=== PATIENT | male | born 1960 | race Caucasian/White ===

== ENCOUNTER 2024-11-29 14:43 | Inpatient (IN) | payer MEDICARE, MEDICAID ==
[~2024-11-29] VITALS: Ht 167.6 cm; Wt 141.5 kg
[~2024-11-29 14:43] MED LIST: ATEN100T PO; DIVA-75 PO; DOCU-138 PO; DONE10TA43 PO; INSU100I28 SQ; IPRA3AMP9 NEB; LOSA100T33 PO; MEMA5TAB16 PO; METF-416 PO; NIFE-32 PO; OLAN5TAB74 PO; QUET50TA23 PO; ROSU40TA PO
[2024-11-29 15:56] LABS: HEMATOCRIT. 37.7 % (42.0-52.0); HEMOGLOBIN. 12.4 g/dL (14.0-18.0); MEAN CORPUSCULAR HEMOGLOBIN 29.6 pg (28.0-32.0); MEAN CORPUSCULAR HGB CONC 32.8 g/dL (31.0-37.0); MEAN PLATELET VOLUME 10.4 fl (7.4-10.4); PLATELET 246 x1000/uL (130-400); RED BLOOD CELL COUNT 4.19 mill/uL (4.7-6.1); RED CELL DISTRIBUTION WIDTH 14.1 % (11.6-14.6); WHITE BLOOD COUNT 8.5 x1000/uL (4.5-11.0)
[2024-11-29 15:59] LABS: DIFFERENTIAL COMMENT 1
[2024-11-29 16:03] LABS: CHLORIDE 96 mEq/L (98-107); SODIUM 133 mEq/L (136-145)
[2024-11-29 16:04] LABS: CALCIUM 8.5 mg/dL (8.7-10.4); CARBON DIOXIDE 20 mEq/L (21-32)
[2024-11-29 16:09] LABS: GLUCOSE 181 mg/dL (70-105); UREA NITROGEN BLOOD 75 mg/dL (9-23)
[2024-11-29 16:11] LABS: TROPONIN I HIGH SENSITIVITY 25 ng/L (3.0-53)
[2024-11-29 16:13] LABS: CREATININE 4.3 mg/dL (0.6-1.3)
[2024-11-29 16:32] LABS: PLATELET ESTIMATE NORMAL
[2024-11-29] MEDS ORDERED: CLONIDINE 0.1MG TABLET PO PRN (17:15)
[2024-11-29] MEDS ORDERED: ONDANSETRON HCL 4MG/2ML INJ IV PRN (17:15)
[2024-11-29] MEDS: ONDANSETRON HCL 4MG/2ML INJ IV ONE (18:43)
[2024-11-29] MEDS: SODIUM CHLORIDE 0.9% 1,000 ML IV ONE (18:43)
[2024-11-29] MEDS: MORPHINE SULFATE 4 MG/ML INJ (FOR IV/IM USE) IV ONE (18:43)
[2024-11-29] MEDS: DEXT 5%/0.45% NACL 1000ML 1,000 ML IV SCH (19:13)
[2024-11-29] MEDS: CEFTRIAXONE 1GM/50ML 50 ML IV SCH (21:15)
[2024-11-29] MEDS: ACETAMINOPHEN 325MG TABLET PO PRN (22:40)
[2024-11-30] VITALS (48 sets, daily range): BP systolic 77–148; BP diastolic 35–118; PULSE 68–87; RESP 17–38; TEMP 36.4–38.3; O2SAT 90–100
[2024-11-30] MEDS ORDERED: ETOMIDATE 2MG/ML 10ML VIAL IV ONE ×2 (06:53→15:35)
[2024-11-30] MEDS: PIPERACILLIN/TAZO 3.375G/50ML 50 ML IV SCH (09:00)
[2024-11-30] MEDS ORDERED: NOREPINEPHRINE 8 MG in DEXT 5% WATER 242 ML IV PRN (09:30)
[2024-11-30] MEDS ORDERED: NOREPINEPHRINE 8MG/250ML PMX 250 ML IV ONE (09:43)
[2024-11-30] MEDS: MIDAZOLAM HCL 2 MG/2 ML VIAL IV ONE (09:45)
[2024-11-30] MEDS ORDERED: NOREPINEPHRINE 8MG/250ML PMX 250 ML IV PRN (09:45)
[2024-11-30] MEDS: NOREPINEPHRINE 8MG/250ML PMX 250 ML IV PRN (10:43)
[2024-11-30] MEDS: SODIUM CHLORIDE 0.9% 500 ML IV ONE (11:00)
[2024-11-30] MEDS: PROPOFOL 10MG/ML 100ML 100 ML IV PRN (11:16)
[2024-11-30 11:22] LABS: BG BASE EXCESS -11.5 mmol/L (-2.0-3.0); BG CARBOXYHEMOGLOBIN 0.4 % (0.5-1.5); BG DEOXYHEMOGLOBIN 0.7 % (0.0-5.0); BG FRACTION INSPIRED OXYGEN 100; BG HCO3 ACT 15.9 mmol/L (21.0-28.0); BG METHEMOGLOBIN 0.3 % (0.5-1.5); BG OXYGEN SATURATION 99.3 % (94.0-98.0); BG OXYHEMOGLOBIN 98.6 % (94.0-98.0); BG PCO2 41.1 mmHg (35.0-48.0); BG PH 7.205 (7.350-7.450); BG PO2 179.4 mmHg (83.0-108.0); BG SAMPLE SITE RIGHT RADIAL; BG TOTAL HEMOGLOBIN 13.2 g/dL (13.5-17.5); BG VENT MODE VENT - AC
[2024-11-30] MEDS: VANCOMYCIN 1G PREMIX 200 ML IV SCH (13:00)
[2024-11-30] MEDS: SODIUM BICARBONATE 100 MEQ in SODIUM CHLORIDE 0.45% 900 ML IV SCH (13:22)
[2024-11-30] MEDS ORDERED: FENTANYL 2500MCG/250ML PMX 250 ML IV PRN (13:30)
[2024-11-30 13:51] LABS: HEMATOCRIT. 35.7 % (42.0-52.0); HEMOGLOBIN. 11.5 g/dL (14.0-18.0); MEAN CORPUSCULAR HEMOGLOBIN 29.2 pg (28.0-32.0); MEAN CORPUSCULAR HGB CONC 32.3 g/dL (31.0-37.0); MEAN CORPUSCULAR VOLUME 90.5 fL (80.0-94.0); MEAN PLATELET VOLUME 10.4 fl (7.4-10.4); PLATELET 279 x1000/uL (130-400); RED BLOOD CELL COUNT 3.95 mill/uL (4.7-6.1); RED CELL DISTRIBUTION WIDTH 14.3 % (11.6-14.6); WHITE BLOOD COUNT 9.3 x1000/uL (4.5-11.0)
[2024-11-30 13:56] LABS: DIFFERENTIAL COMMENT 1
[2024-11-30 14:02] LABS: CHLORIDE 97 mEq/L (98-107); POTASSIUM 3.7 mEq/L (3.5-5.1); SODIUM 134 mEq/L (136-145)
[2024-11-30 14:03] LABS: CALCIUM 7.6 mg/dL (8.7-10.4); CARBON DIOXIDE 19 mEq/L (21-32)
[2024-11-30 14:08] LABS: GLUCOSE 158 mg/dL (70-105); TROPONIN I HIGH SENSITIVITY 39 ng/L (3.0-53); UREA NITROGEN BLOOD 87 mg/dL (9-23)
[2024-11-30 14:09] LABS: ALANINE AMINOTRANSFERASE 31 IU/L (10-49); ALBUMIN 3.5 g/dL (3.2-4.8); ASPARTATE AMINOTRANSFERASE 80 IU/L (<34)
[2024-11-30 14:10] LABS: BILIRUBIN TOTAL 0.2 mg/dL (0.1-1.0); PROTEIN TOTAL 6.4 g/dL (6.0-8.3)
[2024-11-30 14:12] LABS: THYROID STIMULATING HORMONE 0.93 uIU/mL (0.55-4.78)
[2024-11-30 15:21] LABS: LACTIC ACID 5.2 mmol/L (0.4-2.0)
[2024-11-30] MEDS ORDERED: DEXAMETHASONE 4MG/ML 1ML VIAL ONE (15:35)
[2024-11-30] MEDS ORDERED: ROCURONIUM BROMIDE 10MG/ML VIAL 5ML IV ONE ×3 (15:35→19:46)
[2024-11-30] MEDS ORDERED: PROPOFOL 200MG/20ML VIAL IV ONE (15:35)
[2024-11-30] MEDS ORDERED: FENTANYL CITRATE/PF 50MCG/ML 2ML VIAL ONE (15:35)
[2024-11-30] MEDS ORDERED: ONDANSETRON HCL 4MG/2ML INJ ONE (15:35)
[2024-11-30] MEDS ORDERED: VASOPRESSIN 20 UNIT/ML 1ML ONE (15:46)
[2024-11-30 15:47] LABS: CREATININE 5.4 mg/dL (0.6-1.3)
[2024-11-30] MEDS ORDERED: ALBUMIN HUMAN 12.5G/250ML (5%) IV ONE ×2 (15:47→18:32)
[2024-11-30 16:30] LABS: BG BASE EXCESS -11.9 mmol/L (-2.0-3.0); BG CARBOXYHEMOGLOBIN 0.7 % (0.5-1.5); BG DEOXYHEMOGLOBIN 3.4 % (0.0-5.0); BG FRACTION INSPIRED OXYGEN 50; BG HCO3 ACT 15.4 mmol/L (21.0-28.0); BG METHEMOGLOBIN 0.3 % (0.5-1.5); BG OXYGEN SATURATION 96.6 % (94.0-98.0); BG OXYHEMOGLOBIN 95.6 % (94.0-98.0); BG PCO2 39.9 mmHg (35.0-48.0); BG PH 7.204 (7.350-7.450); BG PO2 94.6 mmHg (83.0-108.0); BG SAMPLE SITE LEFT RADIAL; BG TOTAL HEMOGLOBIN 13.1 g/dL (13.5-17.5); BG TOTAL RESPIRATORY RATE 33 b/min; BG VENT MODE VENT - AC
[2024-11-30 17:30] LABS: PLATELET ESTIMATE NORMAL
[2024-11-30] MEDS ORDERED: EPINEPHRINE 0.1MG/ML (1:10,000) 10ML SYR ONE (17:41)
[2024-11-30] MEDS ORDERED: SODIUM BICARBONATE 8.4% 50MEQ/50ML SYR IV ONE ×2 (19:17→19:19)
[2024-11-30 19:18] LABS: BG CARBOXYHEMOGLOBIN 0.4 % (0.5-1.5); BG DEOXYHEMOGLOBIN 5.7 % (0.0-5.0); BG FRACTION INSPIRED OXYGEN 50; BG HCO3 ACT 13.3 mmol/L (21.0-28.0); BG METHEMOGLOBIN 0.3 % (0.5-1.5); BG OXYGEN SATURATION 94.3 % (94.0-98.0); BG OXYHEMOGLOBIN 93.6 % (94.0-98.0); BG PH 7.139 (7.350-7.450); BG PO2 83.3 mmHg (83.0-108.0); BG SAMPLE SITE RIGHT RADIAL; BG TOTAL HEMOGLOBIN 12.5 g/dL (13.5-17.5)
[2024-11-30] MEDS ORDERED: CALCIUM CHLORIDE 1GM/10ML SYR IV ONE (19:32)
[2024-11-30] MEDS: OLANZAPINE 5MG TABLET ODT PO SCH (21:00)
[2024-11-30] MEDS: DIVALPROEX SODIUM 500MG DR TABLET PO SCH (21:00)
[2024-11-30 21:02] LABS: BG BASE EXCESS -8.6 mmol/L (-2.0-3.0); BG CARBOXYHEMOGLOBIN 0.3 % (0.5-1.5); BG FRACTION INSPIRED OXYGEN 100; BG METHEMOGLOBIN 0.3 % (0.5-1.5); BG OXYHEMOGLOBIN 98.4 % (94.0-98.0); BG PCO2 30.4 mmHg (35.0-48.0); BG PH 7.339 (7.350-7.450); BG PO2 132.2 mmHg (83.0-108.0); BG SAMPLE SITE ALINE; BG TOTAL HEMOGLOBIN 11.7 g/dL (13.5-17.5); BG VENT MODE VENT - AC
[2024-11-30 22:38] LABS: INR 1.3; PARTIAL THROMBOPLASTIN TIME 34.3 sec (23.4-31.0); PROTHROMBIN TIME 13.4 sec (9.6-11.0)
[2024-11-30] MEDS: VASOPRESSIN 20 UNIT in SODIUM CHLORIDE 0.9% 99 ML IV PRN (22:52)
[2024-11-30] MEDS ORDERED: LACTATED RINGERS 1,000 ML IV ONE (23:45)
[2024-11-30] MEDS: LACTATED RINGERS 1,000 ML IV ONE (23:58)
[2024-12-01] VITALS (102 sets, daily range): BP systolic 84–168; BP diastolic 57–98; PULSE 70–94; RESP 9–40; TEMP 36.4–38.8; O2SAT 89–100
[2024-12-01] MEDS: FENTANYL CITRATE 2,500 MCG in SODIUM CHLORIDE 0.9% 200 ML IV PRN (01:30)
[2024-12-01] MEDS: NOREPINEPHRINE 32 MG in DEXT 5% WATER 218 ML IV PRN (01:32)
[2024-12-01 02:11] LABS: HEMATOCRIT 36.4 % (42.0-52.0); HEMOGLOBIN 11.9 g/dL (14.0-18.0); MEAN CORPUSCULAR HEMOGLOBIN 29.3 pg (28.0-32.0); MEAN CORPUSCULAR HGB CONC 32.7 g/dL (31.0-37.0); MEAN CORPUSCULAR VOLUME 89.5 fL (80.0-94.0); PLATELET 267 x1000/uL (130-400); RED BLOOD CELL COUNT 4.07 mill/uL (4.7-6.1); RED CELL DISTRIBUTION WIDTH 14.6 % (11.6-14.6)
[2024-12-01 02:22] LABS: CHLORIDE 97 mEq/L (98-107); POTASSIUM 4.3 mEq/L (3.5-5.1); SODIUM 138 mEq/L (136-145)
[2024-12-01 02:23] LABS: CALCIUM 7.7 mg/dL (8.7-10.4); CARBON DIOXIDE 21 mEq/L (21-32)
[2024-12-01 02:28] LABS: GLUCOSE 151 mg/dL (70-105); UREA NITROGEN BLOOD 90 mg/dL (9-23)
[2024-12-01 02:35] LABS: LACTIC ACID 7.9 mmol/L (0.4-2.0)
[2024-12-01 02:35] LABS: CREATININE 5.1 mg/dL (0.6-1.3)
[2024-12-01] MEDS: VANCOMYCIN 1G PREMIX 200 ML IV SCH (02:50)
[2024-12-01 06:29] LABS: HEMATOCRIT. 34.2 % (42.0-52.0); HEMOGLOBIN. 11.6 g/dL (14.0-18.0); MEAN CORPUSCULAR HGB CONC 33.9 g/dL (31.0-37.0); MEAN CORPUSCULAR VOLUME 88.4 fL (80.0-94.0); MEAN PLATELET VOLUME 10.6 fl (7.4-10.4); PLATELET 280 x1000/uL (130-400); RED BLOOD CELL COUNT 3.87 mill/uL (4.7-6.1); WHITE BLOOD COUNT 10.4 x1000/uL (4.5-11.0)
[2024-12-01 06:42] LABS: CALCIUM 7.4 mg/dL (8.7-10.4); POTASSIUM 4.9 mEq/L (3.5-5.1)
[2024-12-01 06:59] LABS: DIFFERENTIAL COMMENT 1
[2024-12-01] MEDS ORDERED: LIDOCAINE HCL 1% 10 MG/ML 10ML VIAL ONE (07:13)
[2024-12-01 09:09] LABS: BG BASE EXCESS -9.5 mmol/L (-2.0-3.0); BG CARBOXYHEMOGLOBIN 0.9 % (0.5-1.5); BG DEOXYHEMOGLOBIN 7.4 % (0.0-5.0); BG FRACTION INSPIRED OXYGEN 50; BG HCO3 ACT 17.7 mmol/L (21.0-28.0); BG METHEMOGLOBIN 0.3 % (0.5-1.5); BG OXYGEN SATURATION 92.5 % (94.0-98.0); BG OXYHEMOGLOBIN 91.4 % (94.0-98.0); BG PCO2 43.7 mmHg (35.0-48.0); BG PH 7.225 (7.350-7.450); BG PO2 71.2 mmHg (83.0-108.0); BG SAMPLE SITE ALINE; BG TOTAL HEMOGLOBIN 12.1 g/dL (13.5-17.5); BG VENT MODE VENT - AC
[2024-12-01] MEDS: SODIUM BICARBONATE 8.4% 50MEQ/50ML SYR IV SCH (09:33)
[2024-12-01] MEDS ORDERED: SODIUM BICARBONATE 150 MEQ in DEXTROSE 5% WATER 850 ML IV SCH (10:30)
[2024-12-01] MEDS: SODIUM BICARBONATE 150 MEQ in DEXTROSE 5% WATER 850 ML IV SCH (11:11)
[2024-12-01] MEDS: LACTATED RINGERS 1,000 ML IV SCH (12:28)
[2024-12-01] MEDS: PANTOPRAZOLE SODIUM 40 MG/VIAL IV SCH (14:15)
[2024-12-01 15:22] LABS: PLATELET ESTIMATE NORMAL
[2024-12-01] MEDS: LACTATED RINGERS 1,000 ML IV NR (17:42)
[2024-12-01] MEDS ORDERED: CALCIUM GLUCONATE 1GM PREMIX 50 ML IV ONE (22:30)
[2024-12-01] MEDS: CALCIUM GLUCONATE 1GM PREMIX 50 ML IV NR (22:56)
[2024-12-02] VITALS (104 sets, daily range): BP systolic 85–188; BP diastolic 51–119; PULSE 63–134; RESP 9–29; TEMP 36.89184–39.4; O2SAT 94–100
[2024-12-02] MEDS: CALCIUM GLUCONATE 1GM PREMIX 50 ML IV NR (00:31)
[2024-12-02] MEDS ORDERED: DEXTROSE 50% WATER 50ML SYRINGE IV PRN (01:15)
[2024-12-02] MEDS: INSULIN LISPRO 100 UNITS/ML SUBCUT SCH (01:44)
[2024-12-02 06:42] LABS: CALCIUM 6.5 mg/dL (8.7-10.4); CHLORIDE 94 mEq/L (98-107); POTASSIUM 4.9 mEq/L (3.5-5.1); SODIUM 137 mEq/L (136-145)
[2024-12-02 06:43] LABS: CARBON DIOXIDE 22 mEq/L (21-32)
[2024-12-02 06:48] LABS: GLUCOSE 237 mg/dL (70-105)
[2024-12-02 06:51] LABS: PHOSPHORUS 5.6 mg/dL (2.5-4.9)
[2024-12-02 07:02] LABS: HEMATOCRIT. 31.1 % (42.0-52.0); HEMOGLOBIN. 10.5 g/dL (14.0-18.0); MEAN CORPUSCULAR HEMOGLOBIN 29.7 pg (28.0-32.0); MEAN CORPUSCULAR HGB CONC 33.8 g/dL (31.0-37.0); MEAN CORPUSCULAR VOLUME 87.8 fL (80.0-94.0); MEAN PLATELET VOLUME 10.4 fl (7.4-10.4); PLATELET 189 x1000/uL (130-400); RED BLOOD CELL COUNT 3.54 mill/uL (4.7-6.1); RED CELL DISTRIBUTION WIDTH 14.3 % (11.6-14.6); WHITE BLOOD COUNT 10.8 x1000/uL (4.5-11.0)
[2024-12-02 07:22] LABS: CREATININE 5.9 mg/dL (0.6-1.3); UREA NITROGEN BLOOD 106 mg/dL (9-23)
[2024-12-02 07:52] LABS: DIFFERENTIAL COMMENT 1
[2024-12-02 09:37] LABS: BG BASE EXCESS -2.4 mmol/L (-2.0-3.0); BG CARBOXYHEMOGLOBIN 0.4 % (0.5-1.5); BG DEOXYHEMOGLOBIN 1.7 % (0.0-5.0); BG FRACTION INSPIRED OXYGEN 45; BG HCO3 ACT 21.6 mmol/L (21.0-28.0); BG METHEMOGLOBIN 0.3 % (0.5-1.5); BG OXYGEN SATURATION 98.3 % (94.0-98.0); BG OXYHEMOGLOBIN 97.6 % (94.0-98.0); BG PCO2 34.7 mmHg (35.0-48.0); BG PH 7.412 (7.350-7.450); BG PO2 109.3 mmHg (83.0-108.0); BG SAMPLE SITE ALINE; BG TOTAL HEMOGLOBIN 11.5 g/dL (13.5-17.5); BG VENT MODE VENT - AC
[2024-12-02] MEDS ORDERED: LIDOCAINE HCL 1% 10 MG/ML 10ML VIAL ONE (10:31)
[2024-12-02 12:13] LABS: PLATELET ESTIMATE NORMAL
[2024-12-02 16:48] LABS: HEPATITIS B SURFACE ANTIGEN NEGATIVE (Negative)
[2024-12-02 17:09] LABS: HEPATITIS A AB IGM NEGATIVE (Negative); HEPATITIS B CORE AB IGM NEGATIVE (Negative)
[2024-12-02 17:10] LABS: HEPATITIS C AB NON REACTIVE (Neg) (Negative)
[2024-12-02] MEDS: MEROPENEM 1G/100ML 100 ML IV SCH (17:41)
[2024-12-03] VITALS (42 sets, daily range): BP systolic 40–155; BP diastolic 26–110; PULSE 48–131; RESP 0–40; TEMP 37.5; O2SAT 95–100
[2024-12-03 00:15] LABS: BG BASE EXCESS -8.5 mmol/L (-2.0-3.0); BG CARBOXYHEMOGLOBIN 1.2 % (0.5-1.5); BG DEOXYHEMOGLOBIN 0.1 % (0.0-5.0); BG FRACTION INSPIRED OXYGEN 100; BG HCO3 ACT 16.4 mmol/L (21.0-28.0); BG METHEMOGLOBIN 0.3 % (0.5-1.5); BG OXYGEN SATURATION 99.9 % (94.0-98.0); BG OXYHEMOGLOBIN 98.4 % (94.0-98.0); BG PCO2 32.5 mmHg (35.0-48.0); BG PH 7.322 (7.350-7.450); BG SAMPLE SITE ALINE; BG TOTAL HEMOGLOBIN 13.7 g/dL (13.5-17.5); BG VENT MODE VENT - AC
[2024-12-03] MEDS: EPINEPHRINE 10 MG in SODIUM CHLORIDE 0.9% 240 ML IV PRN (01:01)
[2024-12-03] MEDS: PHENYLEPHRINE 100 MG in DEXT 5% WATER 240 ML IV PRN (04:40)
[2024-12-03 04:57] LABS: BASOPHILS % 0.2 % (0.0-2.0); EOSINOPHILS % 0.1 % (0.0-5.0); HEMATOCRIT. 28.1 % (42.0-52.0); HEMOGLOBIN. 8.7 g/dL (14.0-18.0); LYMPHOCYTES % 7.4 % (20.0-50.0); MEAN CORPUSCULAR HEMOGLOBIN 29.3 pg (28.0-32.0); MEAN CORPUSCULAR HGB CONC 31.1 g/dL (31.0-37.0); MEAN CORPUSCULAR VOLUME 94.1 fL (80.0-94.0); MONOCYTES % 13.6 % (2.0-8.0); NEUTROPHILS % 78.7 % (40.0-76.0); PLATELET 185 x1000/uL (130-400); RED BLOOD CELL COUNT 2.98 mill/uL (4.7-6.1); WHITE BLOOD COUNT 18.9 x1000/uL (4.5-11.0)
[2024-12-03 05:07] LABS: CHLORIDE 96 mEq/L (98-107); SODIUM 140 mEq/L (136-145)
[2024-12-03 05:08] LABS: CARBON DIOXIDE 12 mEq/L (21-32)
[2024-12-03 05:09] LABS: CALCIUM 6.4 mg/dL (8.7-10.4)
[2024-12-03 05:13] LABS: GLUCOSE 242 mg/dL (70-105)
[2024-12-03 05:14] LABS: UREA NITROGEN BLOOD 85 mg/dL (9-23)
[2024-12-03 05:15] LABS: ALANINE AMINOTRANSFERASE 88 IU/L (10-49); ALBUMIN 2.5 g/dL (3.2-4.8); ASPARTATE AMINOTRANSFERASE 201 IU/L (<34)
[2024-12-03 05:16] LABS: BILIRUBIN TOTAL 0.3 mg/dL (0.1-1.0); PROTEIN TOTAL 4.8 g/dL (6.0-8.3)
[2024-12-03 05:36] LABS: CREATININE 5.5 mg/dL (0.6-1.3); POTASSIUM 6.2 mEq/L (3.5-5.1)
[2024-12-03] MEDS: EPINEPHRINE 20 MG in SODIUM CHLORIDE 0.9% 480 ML IV PRN (05:47)
[2024-12-03] MEDS: DEXTROSE 50% WATER 50ML SYRINGE IV NR (07:41)
[2024-12-03] MEDS: INSULIN REGULAR (HUMULIN R) 1000UNITS/10ML VIAL IV NR (07:41)
[2024-12-03] MEDS: DOPAMINE 800MG PREMIX (DOUBLE) 250 ML IV PRN (07:50)
[2024-12-03] MEDS: HYDROCORTISONE SOD SUCCINATE 100 MG/2 ML VIAL IV SCH (08:19)
[2024-12-03] MEDS ORDERED: MEROPENEM 1G/100ML 100 ML IV SCH (09:00)
== END 2024-12-03 08:37 | DRG 853 ==
LOC: ER 14:43 → EDBEDREQ 16:49 → 5WST 19:21 → EDBEDREQ 19:32 → CVICU 11-30 10:36
PROVIDERS: ADMIT Internal Medicine Nephrology; ATTEND Internal Medicine Nephrology
PROC: 0DTN0ZZ Resection of Sigmoid Colon, Open Approach (ICD-10-PCS; principal; 2024-11-30)
PROC: 0D1L0Z4 Bypass Transverse Colon to Cutaneous, Open Approach (ICD-10-PCS; 2024-11-30)
PROC: 0DBL0ZZ Excision of Transverse Colon, Open Approach (ICD-10-PCS; 2024-11-30)
PROC: 30233K1 Transfusion of Nonautologous Frozen Plasma into Peripheral Vein, Percutaneous Approach (ICD-10-PCS; 2024-11-30)
PROC: 5A1945Z Respiratory Ventilation, 24-96 Consecutive Hours (ICD-10-PCS; 2024-11-30)
PROC: 0BH17EZ Insertion of Endotracheal Airway into Trachea, Via Natural or Artificial Opening (ICD-10-PCS; 2024-11-30)
PROC: GZ56ZZZ Individual Psychotherapy, Supportive (ICD-10-PCS; 2024-11-30)
PROC: 02HV33Z Insertion of Infusion Device into Superior Vena Cava, Percutaneous Approach (ICD-10-PCS; 2024-12-01)
PROC: B548ZZA Ultrasonography of Superior Vena Cava, Guidance (ICD-10-PCS; 2024-12-01)
PROC: 5A12012 Performance of Cardiac Output, Single, Manual (ICD-10-PCS; 2024-12-02)
PROC: 02HV33Z Insertion of Infusion Device into Superior Vena Cava, Percutaneous Approach (ICD-10-PCS; 2024-12-02)
PROC: B548ZZA Ultrasonography of Superior Vena Cava, Guidance (ICD-10-PCS; 2024-12-02)
PROC: 5A1D70Z Performance of Urinary Filtration, Intermittent, Less than 6 Hours Per Day (ICD-10-PCS; 2024-12-02)
PROC: 5A12012 Performance of Cardiac Output, Single, Manual (ICD-10-PCS; 2024-12-03)
DX: A41.9 Sepsis, unspecified organism (principal); G93.41 Metabolic encephalopathy; J96.01 Acute respiratory failure with hypoxia; R65.21 Severe sepsis with septic shock; G93.6 Cerebral edema; N17.0 Acute kidney failure with tubular necrosis; E87.1 Hypo-osmolality and hyponatremia; E87.20 Acidosis, unspecified; F03.93 Unspecified dementia, unspecified severity, with mood disturbance; E66.2 Morbid (severe) obesity with alveolar hypoventilation; Z68.42 Body mass index [BMI] 45.0-49.9, adult; K43.6 Other and unspecified ventral hernia with obstruction, without gangrene; Z66 Do not resuscitate; I11.9 Hypertensive heart disease without heart failure; E11.65 Type 2 diabetes mellitus with hyperglycemia; D64.9 Anemia, unspecified; F31.9 Bipolar disorder, unspecified; Z78.1 Physical restraint status; E83.51 Hypocalcemia; E78.00 Pure hypercholesterolemia, unspecified; G47.00 Insomnia, unspecified; K22.9 Disease of esophagus, unspecified; K66.0 Peritoneal adhesions (postprocedural) (postinfection); Z91.199 Patient's noncompliance with other medical treatment and regimen due to unspecified reason; Z79.4 Long term (current) use of insulin; Z79.84 Long term (current) use of oral hypoglycemic drugs; Z79.899 Other long term (current) drug therapy; Z86.73 Personal history of transient ischemic attack (TIA), and cerebral infarction without residual deficits
CPT/HCPCS: 31500; 36415; 36556; 36573; 36600; 71045; 74176; 76937; 80048; 80053; 80202; 82330; 82375; 82805; 82962; 83036; 83605; 83735; 84100; 84145; 84443; 84478; 84484; 85025; 85027; 86705; 86709; 86850; 86900; 86920; 86927; 87070; 87077; 87186; 87340; 88307; 90935; 92950; 93005; 93970; 94002; 94003; 94070; 94664; 98960; 99291; A4606; C1725; C1752; C1887; J0610; J0696; J1100; J1720; J1815; J2003; J2185; J2250; J2270; J2371; J2405; J2470; J2543; J2704; J3010; J3370; J3490; J7030; J7040; J7050; J7060; J7070; J7120; P9017; P9041